=== PATIENT | female | born 1990 | race Caucasian/White ===

== ENCOUNTER 2017-08-27 14:22 | Emergency (ER) | payer SELFPAY ==
[~2017-08-27] VITALS: Ht 162.6 cm; Wt 65.0 kg
[2017-08-27] MEDS ORDERED: MORPHINE SULFATE 10 MG/ML CPJ IM ONE (15:15)
[2017-08-27] MEDS ORDERED: LIDOCAINE HCL 1%/EPI 1:200,000 30 ML VIAL MC ONE (15:15)
[2017-08-27] MEDS ORDERED: BACITRACIN ZINC OINT UDPKT TOP ONE (15:15)
[2017-08-27 16:26] VITALS: BP 118/67
== END 2017-08-27 17:34 | disposition left against medical advice (07) ==
LOC: ER 14:40
DX: S51.811A Laceration without foreign body of right forearm, initial encounter (principal); W25.XXXA Contact with sharp glass, initial encounter; S09.90XA Unspecified injury of head, initial encounter; S50.11XA Contusion of right forearm, initial encounter; M79.644 Pain in right finger(s); Y07.03 Male partner, perpetrator of maltreatment and neglect; Y08.89XA Assault by other specified means, initial encounter; Y93.89 Activity, other specified; Y92.9 Unspecified place or not applicable
CPT/HCPCS: 81025; 99283; A4217; J2270; Z7610